=== PATIENT | female | born 1970 | race African-American/Black ===

== ENCOUNTER 2018-06-28 11:01 | Emergency (ER) | payer OTHER ==
[~2018-06-28] VITALS: Ht 160 cm; Wt 72.1 kg
--- NOTE | 2018-06-28 12:18 | Diagnostic Imaging Report ---
Exam: Right great toe 3 views History: Trauma, pain to great toe Comparison: None. Findings: No acute, displaced fracture or dislocation. Joint spaces are well-maintained. Soft tissues are unremarkable. Impression: No acute osseous abnormality. Signed by: Dr. Anderson Gregg M.D. on 06/28/2018 12:14 PM
[2018-06-28 12:36] VITALS: BP 188/99
== END 2018-06-28 12:42 | disposition home or self-care (01) ==
LOC: FSED 11:01
DX: S90.111A Contusion of right great toe without damage to nail, initial encounter (principal); S86.811A Strain of other muscle(s) and tendon(s) at lower leg level, right leg, initial encounter; W22.09XA Striking against other stationary object, initial encounter; Y92.830 Public park as the place of occurrence of the external cause; I10 Essential (primary) hypertension; F17.210 Nicotine dependence, cigarettes, uncomplicated
CPT/HCPCS: 99283